=== PATIENT | male | born 1955 ===

== ENCOUNTER 2023-12-30 15:28 | Inpatient (IN) | payer MEDICARE, BC, SELFPAY ==
[2023-12-30] VITALS (47 sets, daily range): BP systolic 120–160; BP diastolic 6–93; BMI 34.7; BMI 32.9
[2023-12-30 13:39] LABS: Glucose - Point of Care 120 mg/dl (70-99)
--- NOTE | 2023-12-30 13:41 | ED.CVA ---
History of Present Illness
General
Chief Complaint: CVA/TIA Symptoms
Time Seen by Provider: 12/30/23 13:40
Onset of Stroke Symptoms
Onset of symptoms known: Yes
Date of onset of symptoms: 12/30/23
History of Present Illness
History of Present Illness:
68-year-old male with history of hypertension presents to the emergency department for evaluation of strokelike symptoms. Apparently he woke today stating generally weak, he was noted that he had left facial droop later in the afternoon by his son
and nonnormal was called. On arrival of EMS the patient had no stroke symptoms initial prehospital stroke scale was 0. While en route EMS notes a recurrence of left upper and lower extremity weakness as well as left facial droop, the symptoms have
again improved on arrival to the emergency department. Patient reports current symptoms of general weakness morning arms and legs. He denies headache, vision changes, chest pain, or shortness of breath
Review of Systems
Review of Systems
Allergies reviewed?: Yes
All Other Systems: ROS reviewed and negative except as documented in HPI and ROS
Phy Exam
Physical Exam
Physical Exam:
GEN: Well appearing, NAD, WDWN
HEENT: Oral mucosa moist, no scleral icterus, no nasal congestion
Cardiac: Regular rate
Lung: No respiratory distress, no tachypnea
MSK: No gross deformity or injuries
Skin: Good color, no pallor or jaundice, no rashes
Neuro: AO x3; CN II-XII grossly intact. BUE strength 5/5 in all lawrence, sensation intact and symmetric. BLE strength 5/5 in all lawrence, sensation intact and symmetric
Psych: Calm, cooperative
Course
Orders/Labs/Results
Orders:
Orders
12/30/23 13:39
Electrocardiogram (*1) Urgent
Reason for Study: Fatigue / Weakness
12/30/23 13:40
EKG- Treatment ONCE
12/30/23 13:41
CT Head W/o Iv Contrast Urgent
Comment:
Reason For Exam: tia
12/30/23 13:42
Complete Blood Count/With Diff Urgent
PTT Urgent
12/30/23 14:29
Comprehensive Metabolic Panel Urgent
12/30/23 14:47
Tenecteplase [Tnkase] 24 mg Syringe [Syringe Non-Pump] 0 ml IV NOW
Provider explained risk/benefits to patient &/or caregiver?: Yes
Blood pressure: 145/79
Abnormal Lab Results
12/30/23 12/30/23
13:38 13:42
WBC 12.6 H 10^3/uL
(4.8-10.8)
MPV 11.0 H fL
(7.4-10.4)
Abs Immat Gran (auto) 0.1 H 10^3/uL
(0-0.05)
Absolute Neuts (auto) 10.2 H 10^3/uL
(1.4-6.5)
Absolute Monos (auto) 0.9 H 10^3/uL
(0.1-0.6)
Neutrophils % 80.7 H %
(42.2-75.2)
Lymphocytes % 10.6 L %
(20.5-51.1)
POC Glucose 120 H mg/dl
(70-99)
12/30/23 13:42
Vital Signs
Initial and Last Documented VS:
Initial Vital Signs
Temp Pulse Resp Pulse Ox
98.2 F 75 16 98
12/30/23 13:35 12/30/23 13:35 12/30/23 13:35 12/30/23 13:35
Last Documented Vital Signs
Temp Pulse Resp BP Pulse Ox
98.2 F 70 21 145/79 96
12/30/23 13:35 12/30/23 14:15 12/30/23 13:45 12/30/23 14:00 12/30/23 14:15
MDM/Problems Addressed
MDM/Problems Addressed:
68-year-old male presents the emergency department for evaluation of waxing waning left-sided weakness. Patient's symptoms initially were resolved on arrival however he had 2 recurrences while in the emergency department. After careful discussion
with the patient and family as well as with neurology at the bedside the decision was made to give thrombolytics due to acute onset of symptoms and disabling symptoms. Blood pressure remained well-controlled the emergency department. TNK was
administered without complications. Will be admitted to the intensive care unit for further monitoring
*Critical Care Note
Total Time (30-74mins, 75-104mins- exclusive of procedures): 45 minutes
comment:
Critical care time: 45 minutes
Critical care time was exclusive of: Separately billable procedures, treating other patients, and teaching time
Critical care was necessary to treat or prevent imminent or life-threatening deterioration of the following conditions: Acute CVA
Critical care time spent personally by me on the following activities:
[x] Review of old charts
[x] Obtaining history from patient or surrogate
[x] Ordering and review of the laboratory studies
[x] Ordering and review of radiographic studies
[x] Ordering and performing treatments and interventions
[x] Patient patient's response to treatment
[x] Development of treatment plan with patient or surrogate
Update Note
Update Note:
1417: Patient without recurrence of reportedly hospital symptoms, initial arrival and need for serial current NIH of 4, 2 for facial droop, 1 for left upper and 1 for left lower extremity weakness. Speech is normal and he is fully alert and
oriented. No right-sided symptoms. Will reach out to neurology to discuss
1427: Discussed again with Dr. Guerrero with neurology, he will be in to see the patient at the bedside. Patient's symptoms have again resolved, current NIH of 0
1446: D/W Dr Guerrero at bedside, will administer TNK
1504: S/P TNK, neuro exam remains unchanged. Admitting team at the bedside
ED Attending Note
-
Portions of this chart may have been created with voice recognition software.� Occasional wrong word or��sound alike� substitutions may have occurred due to the inherent limitations of voice recognition software.
Discharge Plan
Departure
Patient Disposition: Admit
Date of Disposition: 12/30/23
Time of Disposition: 14:49
Admit to: ICU
Presentation/result/management discussed w/ accepting MD/DO: Hospitalist
Discharge Problem:
Acute CVA (cerebrovascular accident)
Referrals:
Leonardo Cardoza DO [Family Provider] -
Interventions
Interventions:
*Risk Screen - Suicide Last Done: 12/30/23 13:35
*General Assessment Last Done: 12/30/23 13:35
*Neglect/Abuse Screening Last Done: 12/30/23 13:35
*ED COVID-19 Vaccine History Last Done: 12/30/23 13:35
ED- Pulmonary Assessment Last Done: 12/30/23 14:02
ED- Neurological Assessment Last Done: 12/30/23 14:23
ED- Cardiac Assessment Last Done: 12/30/23 14:02
ED Swallowing Screen Last Done: 12/30/23 14:02
Discharge Date and Time
Print Language: COMORAN
[2023-12-30 14:03] LABS: % Basophils 0.4 % (0-2); % Eosinophils 0.7 % (0-6); % Immature Granulocytes 0.4 % (0-0.5); % Lymphocytes 10.6 % (20.5-51.1); % Monocytes 7.2 % (1.7-9.3); % Neutrophils 80.7 % (42.2-75.2); Absolute Basophils 0.1 10^3/uL (0-0.2); Absolute Eosinophils 0.1 10^3/uL (0-0.7); Absolute Immature Granulocytes 0.1 10^3/uL (0-0.05); Absolute Lymphocytes 1.3 10^3/uL (1.2-3.4); Absolute Monocytes 0.9 10^3/uL (0.1-0.6); Absolute Neutrophils 10.2 10^3/uL (1.4-6.5); Hematocrit 45.8 % (39.0-52.0); Hemoglobin 15.2 g/dL (13.0-18.0); Mean Corp Hgb Conc. 33.2 g/dL (33.0-37.0); Mean Corpuscular Hgb 29.8 pg (27.0-31.0); Mean Corpuscular Volume 89.8 fL (80.0-94.0); Nucleated Red Blood Cells % 0 % (-); Platelet Count 282 10^3/uL (130-400); Red Cell Dist. Width 13.2 % (11.5-14.5); White Blood Cell Count 12.6 10^3/uL (4.8-10.8)
[2023-12-30 14:14] LABS: APTT 29.5 Sec (23.4-35.0)
[2023-12-30] MEDS: TNKASE 4.8 MG IV (14:58)
--- NOTE | 2023-12-30 15:07 | CON.NEURO4 ---
Consultation - Neurology 4
-
CONSULTING PHYSICIAN: Andrew Guerrero MD (Neurology)
REFERRING PHYSICIAN: ED
DICTATED BY: Andrew Guerrero MD
DATE/TIME OF REQUEST: 12/30/2023
DATE/TIME OF CONSULTATION: 12/30/2023 1500
Reason for Consultation: Weakness(Left)
History of Present Illness:
This is a 68 year old right handed male who has presented to the hospital with (chief complaint) of left sided weakness. He gives a history of uncontrolled hypertension benign tremors and tinnitus(Meniere). He had been his usual state of health
when he woke up later this morning. He felt more tired than usual, foggy and yawning. his son noted left facial asymmetry. He was seen by EMS initial evaluation he had minimal deficits. Subsequently his weakness recurred intermittently. In the
ER he had no weakness initially after imaging studies were completed he had recurrent weakness on the left side that persisted
Blood pressure was mildly elevated 145/85.
On my examination patient had right gaze preference, was hemiparetic(L) with left facial asymmetry and photophobia
Informed nursing and the ED to administer TNK stat
Past Medical History: HTN, (Meniere disease?) Vestibular migraine
Surgical History: None
Family History: NC
Social History: lives at home with his wide
Allergies: Aspirin causes tinnitus
Home Medications: Losartan, HCTZ, Propranolol ER
Review of Symptoms:
Patient denies any fever, headache, chest pain, shortness of breath, GI or symptoms.
�Per the HPI.�All systems are reviewed negative except above.
�-
Vital Signs:
The patient has a Temp 36.8 C Pulse 70 Resp 21 BP 145/79 Pulse Ox 96
Physical Exam:
The patient is afebrile, heart sounds S1 and S2 are regular , and chest is clear to auscultation bilaterally.
- If not clear, describe.
NIH Stroke Scale (if applicable):
I performed the NIH stroke scale on the patient on 1445 . The patient scored ( 9 ) points on the NIH stroke scale assessment, which were assigned as follows:
Neurologic Examination:
The patient is awake, confused and oriented x 3. He is able to follow commands and answer questions appropriately. Speech is fluent There is no aphasia or dysarthria.
On cranial nerve assessment, pupils are 3 mm bilateral, round and reactive to light and accommodation. Visual lawrence are full. Extraocular movements are intact. Facial sensations are intact and bilaterally symmetrical, there is no facial asymmetry.
Hearing is intact bilaterally to normal conversation volume. Tongue palate and uvula are midline. Sternocleidomastoid strengths are full bilaterally.
Motor strengths are 5/5 bilateral upper and lower extremities on medical research Resighini scale. There is no drift or involuntary movement noted.
Deep tendon reflexes are 2+ bilateral upper and lower extremities and Babinski is absent bilaterally.
Sensations of pain, touch, temperature and vibration are intact and bilaterally symmetrical. There was no extinction noted on double simultaneous stimulation. Coordination is intact by finger to nose bilaterally. Rombergs and Gait NT
Lab Results: See addendum
Neuro Imaging: CT head: Minimal atrophy. Minimal white matter changes. Normal ventricles
Impression:
Mr. MATT DAVENPORT is a 68 year old M who has presented to the hospital with (symptoms/chief complaint) of left sided weakness
Differentials for the patient's presentation include:
1. Acute Right MCA infarction
2. Complicated Migraine
Patient has the following risk factors for their symptoms: HTN
IV Tenecteplase/IAT candidacy: TNK infused
Recommendations:
1. IV TNK 0.25mg/kg
2. Avoid antiplatelet agents for [address] head
4. MRI/MRA of the head without
5. Ultrasound of the carotids
6. Echocardiogram
7. High intensity statin
8. PT/OT
9. Speech therapy
10. N.p.o.
11. Permissive HTN
12. No venous or arterial punctures for 24 hours
Discussed patient care with: ED hospitalist and family
Advised Nursing to start second IV line prior to TNK. Nursing failed to follow directions and was strongly advised not to start IV after TNK infusion @ 1500..
Allergies
-
Allergies
Allergy/AdvReac Type Severity Reaction Status Date / Time
No Known Allergies Allergy Unverified 12/30/23 13:46
Vital Signs and Labs
-
Vital Signs and Labs:
Vital Signs
Temp Pulse Resp BP Pulse Ox
36.8 C 70 21 145/79 96
12/30/23 13:35 12/30/23 14:15 12/30/23 13:45 12/30/23 14:00 12/30/23 14:15
Lab Results
12/30/23 13:42
APTT 29.5 Sec (23.4-35.0) 12/30/23 13:42
Sodium Cancelled 12/30/23 13:42
Potassium Cancelled 12/30/23 13:42
BUN Cancelled 12/30/23 13:42
Glucose Cancelled 12/30/23 13:42
Calcium Cancelled 12/30/23 13:42
[2023-12-30 15:10] LABS: ALT (SGPT) 17 U/L (0-50); AST (SGOT) 25 U/L (17-59); Albumin 3.9 g/dl (3.5-5.0); Alkaline Phosphatase 72 U/L (38-126); Blood Urea Nitrogen 23 mg/dl (9-20); Carbon Dioxide 22 mmol/L (22-30); Chloride 104 mmol/L (98-107); Estimated Creatinine Clearance 108 ml/min; Glucose 123 mg/dl (70-99); Potassium 4.3 mmol/L (3.5-5.1); Sodium 138 mmol/L (135-145); Total Bilirubin 0.6 mg/dl (0.2-1.3); Total Protein 6.2 g/dl (6.3-8.2); eGFR > 60.00
--- NOTE | 2023-12-30 15:30 | CON.INTV ---
Consultation
Consultation Request
Date/Time Consultation Requested: 12/30/2023 - 1506
Date/Time Consultation Performed: 12/30/2023 - 1524
Requesting Provider: ABDIRAHMAN Andrade
Performing Provider: Evin Montanez MD
Reason for Consultation: suspected CVA s/p TNK
Medical History
-
Chief Complaint: Left-sided weakness/facial droop
History of Present Illness:
68-year-old male non-smoker with a past medical history of hyperlipidemia, hypertension, history of ocular migraines, and vertigo who presents with left-sided weakness/left-sided facial droop. Symptoms began at approximately 12 PM today [employer]CH[employer]ING [employer] and
then symptoms resolved once he arrived here in the hospital. The patient endorsed generalized weakness with arms and legs. He denied headache, vision changes, chest pain or shortness of breath. NIH stroke score was 4 in the ER. Neurology was
contacted (Dr. Guerrero) -CT head obtained which showed no evidence of acute intracranial abnormality. Initial vitals showed he was afebrile to 98.2 �F, pulse rate 75, breathing at 16 breaths/min, BP 155/76 and saturating 98% on room air. Labs showed
mild leukocytosis to 12.6, Hb 15.2, platelets 282, PTT 29.5, and glucose 123. Decision made to administer tenecteplase, which was given at 1458. Patient is now being admitted to the ICU for q1hr neurochecks and close monitoring. Car Rental Agency Manager
consulted for additional management/recommendations.
When I saw the pt he was in NAD. , Concepción, at bedside, and all questions were answered, Pt. currently on room air breathing comfortably, SpO2 97%, HR 74 and BP 145/71. He says that he feels like 'he is on drugs.' He says his left sided
weakness symptoms began this AM at around 11-1130. He currenyl feels better but still with left arm and left leg weakness. He denies MOODY, chest pain, abd pain, N/V/f/c.
PMHx: Vertigo, hyperlipidemia, chronic left hip pain, history of ocular migraine, hypertension, elevated PSA, history of hemorrhoids
PSHx: Tonsillectomy
Past Medical History
Past Medical History: Other (Above as per HPI)
Past Surgical History: Other (Above as per HPI)
Social History
Tobacco: Non-smoker
Alcohol: None
Drug: None
Personal:
Living: With Family
Family History
Family History: CAD (Father: Hx of DC (he was a smoker and drinker))
Allergies / Home Medications
Allergies
Allergy/AdvReac Type Severity Reaction Status Date / Time
No Known Allergies Allergy Unverified 12/30/23 13:46
Review of Systems
-
History Source: Patient
All other systems: Negative unless noted
Vitals / Labs / Diagnostic Testing
Vital Signs
Temp Pulse Resp BP Pulse Ox
98.2 F 73 16 120/62 96
12/30/23 13:35 12/30/23 15:14 12/30/23 15:14 12/30/23 15:14 12/30/23 14:15
Lab Data
12/30/23 13:42
12/30/23 14:29
Laboratory Results
12/30/23
13:42
APTT 29.5
Diagnostic Testing:
Physical Exam
-
HEENT: Normocephalic and Anicteric
Cardiovascular: S1/S2
Respiratory: Wheeze (negative), Rales (negative), Rhonchi (negative) and Non-Labored Respirations
GI: Soft, Non Distended, Non Tender and Normal Bowel Sounds
Neurology: Awake, Alert, Other (Left hand mill machinist strength 3/5, right hand mill machinist strength 5/5; left foot dorsi-/plantar-flexion: 4/5, right foot dorsi-/plantar-flexion: 5/5; left flattening of nasolabial fold with smiling) and Other (sensation to light
touch intact in arms, legs and face; able to resist me opening eye lids, normal shoulder shrug, normal H test with occasional drifting of eyes to the right; able to protrude tongue and deviate to left and right)
Skin: Warm and Dry
General: Respiratory Distress (negative), Comfortable, Chills (negative) and Sweats (negative)
Assessment
-
Assessment: 68-year-old male non-smoker with a past medical history of hyperlipidemia, hypertension, history of ocular migraines, and vertigo who presents with left-sided weakness/left-sided facial droop. Symptoms began at approximately 12 PM
today [employer] and then symptoms resolved once he arrived here in the hospital. The patient endorsed generalized weakness with arms and legs. He denied headache, vision changes, chest pain or shortness of breath. NIH stroke score was 4 in the ER.
Neurology was contacted (Dr. Guerrero) -CT head obtained which showed no evidence of acute intracranial abnormality. Initial vitals showed he was afebrile to 98.2 �F, pulse rate 75, breathing at 16 breaths/min, BP 155/76 and saturating 98% on room air.
Labs showed mild leukocytosis to 12.6, Hb 15.2, platelets 282, PTT 29.5, and glucose 123. Decision made to administer tenecteplase, which was given at 1458. Patient is now being admitted to the ICU for q1hr neurochecks and close monitoring.
Car Rental Agency Manager consulted for additional management/recommendations.
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
Impression:
#Left-sided weakness/facial droop suspicious for R-sided ischemic CVA s/p TNK (administered at 14:58 on 12/30/2023)
#Leukocytosis - likely reactive
#History of ocular migraine
#Hypertension
#History of hemorrhoids
#History of vertigo
Plan:
- Continue q1hr neurochecks per protocol with NIHSS q shift
- Stat CT head for any change in neurochecks or NIHSS with notification to Neurologist and Car Rental Agency Manager
- Hold ant-coagulants/anti-platelets until >24 hrs s/p TNK
- Repeat CT head ~[address] head earlier today
- Strict BP with goal <180/105mmHg (with MAP>65) at least until 24 hrs s/p TNK
- Bedrest with HOB flat as tolerated to help perfuse brain parenchyma
- RN bedside swallowing eval to assess if pt can take PO meds
- CROZER eval prior to starting PO diet
- Check TTE with bubble study
- Check TSH with reflex to free T4, UA and vitamin B12, folate
- Check lipid panel and A1C
- Goal LDL<70
- PT/OT
- Eventual MRI (likely this upcoming Monday)
- Trend WBC; monitor for fever
- WBC likely reactive --> hold off on ABx for now
- If pt spikes a fever then consider starting empiric Abx at that time
- Maintain SpO2 >94%
- Replete electrolytes with K>4, Mg>2
- Maintain euglycemia with goal BG 140-180
- prn nebulized bronchodilators - pt not currently bronchospastic
- Incentive spirometer encouraged
- DVT ppx: SCDs for now; can likely start LMWH tomorrow night assuming repeat CT head tomorrow shows no acute changes or ICH
Critical care statement: A total of 42 minutes of critical care time was provided for this patient today. This includes management of unstable vital signs, evaluation of the patient at bedside, reviewing the patient's pertinent medical records
including radiographs, microbiology, laboratory evaluations, and discussion with primary team, consultants, pharmacy, nutrition, physical therapy, case management, charge nurse, critical care nursing, and respiratory therapy.
Data:
CT Head 12/30/2023: No evidence of acute intracranial abnormality.
--- NOTE | 2023-12-30 15:42 | HPS.HSE ---
Family Physician
-
Family Physician: Leonardo Cardoza
Chief Complaint
-
Left sided weakness
History of Present Illness
Patient is 68 yo male with a hx of hypertension, essential tremor and ocular migraines who presents with left-sided weakness, facial droop and slurred speech. History obtained through combination of patient and patient's family member in the room.
He reports that his symptoms began 'around lunchtime' when he noticed he was yawning a lot and then felt funny as if he 'was on drugs.' He then sat on the floor and could not get up due to weakness, worse in the LLE than LUE. He says he called out
to his son, who reportedly found the patient down at 11:22am per the patient's at bedside. It seems symptoms were waxing and waning until EMS was called and was brought to the emergency department around 1:30PM. Patient was evaluated by
neurology as a stroke alert. Patient received TNK prior to my evaluation. Family at bedside have noted some improvement in his symtpoms.
Medical History
Past Medical History
Past Medical History: Reports Other
Additional Past Medical History:
Essential Hypertension
Essential Tremor
Ocular Migraine
Meniere's Disease (Questionable)
Past Surgical History: Reports Other
Additional Past Surgical History:
Tonsillectomy
Social History
Tobacco: Non-smoker
Alcohol: None
Personal:
Living: With Family
Family History
Family History: Not pertinent
Allergies / Home Medications
Allergies reflects when Allergies were last updated in [facility].
Home Medications with original date entered in [facility]
Allergy/Medication List:
Allergies
Allergy/AdvReac Type Severity Reaction Status Date / Time
No Known Allergies Allergy Unverified 12/30/23 13:46
Home Medications
hydrochlorothiazide 25 mg tablet 25 mg PO DAILY 12/30/23
losartan 50 mg tablet 50 mg PO DAILY 12/30/23
propranolol 80 mg capsule,extended release 24 hr 80 mg PO DAILY 12/30/23
Review of Systems
-
A 12 point ROS was completed and negative except as noted: Yes
Constitutional: Denies Fever or Chills
Respiratory: Denies Cough or Trouble Breathing
Cardiac: Denies Chest Pain or Palpitations
Neurological: Reports See HPI
Physical Exam
Vital Signs
Vital Signs
Temp Pulse Resp BP Pulse Ox
98.2 F 70 18 142/70 96
12/30/23 13:35 12/30/23 15:29 12/30/23 15:29 12/30/23 15:29 12/30/23 14:15
Physical Exam
General: Comfortable and Conversant
HEENT: Anicteric and Moist mucous membranes
Respiratory: Clear and Non Labored Respirations
Cardiac: S1/S2 and Regular Rhythm
GI: Soft and Non Tender
Rectal: Deferred by Provider
Musculoskeletal: No Clubbing, No Cyanosis and No Edema
Skin: Warm and Dry
Neuro: Awake, Alert, AO x 3, Facial Droop (Slight on Left), Tremors (chronic per patient) and Other (4/5 Strength LUE; 3/5 Strength LLE)
Laboratory Results
-
12/30/23 13:42
12/30/23 14:29
Laboratory Results
APTT 29.5 Sec (23.4-35.0) 12/30/23 13:42
Total Bilirubin 0.6 mg/dl (0.2-1.3) 12/30/23 14:29
AST 25 U/L (17-59) 12/30/23 14:29
ALT 17 U/L (0-50) 12/30/23 14:29
Alkaline Phosphatase 72 U/L (38-126) 12/30/23 14:29
Data Reviewed
-
CT Scan: Report Reviewed by me
Lab Data: Labs Reviewed by me
Impression/Plan
-
Left Sided Weakness and Facial Droop concern for Acute Stroke
-Patient received TNK in ED
-Consult Neurology
-Admit to ICU for close monitoring
-Check Brain MRI with Head/Neck MRA tomorrow
Essential Hypertension
-Continue losartan and propranolol
-Hold HCTZ
Essential Tremor
-Continue Propranolol
DVT proph: SCDs
Code Status: Full Code
--- NOTE | 2023-12-30 16:42 | W.PN.UPDATE ---
Update Note
Progress Note Update
This is an addendum to the H&P written by Lizbeth Leary on 12/30/2023. Patient seen and examined independently with PA.
68-year-old male past medical history of ocular migraine, essential tremor, hypertension presenting with acute onset left-sided weakness, facial droop and slurred speech since lunchtime. NIH score of 9 which was concerning for acute right MCA
infarction.
Patient received TNK with noticeable improvement in weakness.
Neurochecks per protocol. Permissive hypertension up to 180/105. Hold antihypertensives. Check speech and swallow. A1c and lipid panel. Check MRI/MRA head and neck. Neurology following.
--- NOTE | 2023-12-30 17:28 | PTCARENOTE ---
Rec'd pt at approx 1610. Pt AAOx3, NIHSS-5. +left facial droop noticeable at rest. Mild weakness to LUE/LLE, slight drift in left arm, no drift noted in left leg. Pt states having mild sensation loss to face and upper body on left upon testing, no
loss to left leg. +LUE ataxia. Bedside swallow eval done, pt states that his swallowing 'doesn't feel normal'. No coughing noted, pt remains NPO, to have speech eval tomorrow. Monitor SR. Lungs CTA, pox 94% RA. +BS, abd soft/nt. at bedside,
updated on plan of care.
--- NOTE | 2023-12-30 20:00 | PTCARENOTE ---
Received pt resting in bed, AAOx3. NIH handoff completed with gabino RN. NIH = 3. L droop present, LUE and LLE 4/5 strength. Decreased L sided sensation and ataxia resolved on exam. Pt. without complaints. NSR on tele. HR 70s. BP 150s/80s. +
pulses. Afebrile. On RA, spo2 96%. Lungs CTA. + bowel sounds. Tolerated sips of h20. Voided 400ml krystal urine. R FA #20 patent and capped. Neuro checks ongoing per protocol. Call schmid in reach.
Updated neuro Dr Guerrero.
[2023-12-31] VITALS (28 sets, daily range): BP systolic 101–150; BP diastolic 54–86; PULSE 81; O2SAT 96; BMI 33.2
--- NOTE | 2023-12-31 | PTCARENOTE ---
No changes in assessment. Pt resting comfortably between neuro checks.
[2023-12-31 03:59] LABS: Hematocrit 41.3 % (39.0-52.0); Hemoglobin 14.4 g/dL (13.0-18.0); Mean Corp Hgb Conc. 34.9 g/dL (33.0-37.0); Mean Corpuscular Hgb 29.7 pg (27.0-31.0); Mean Corpuscular Volume 85.2 fL (80.0-94.0); Platelet Count 280 10^3/uL (130-400); Red Blood Cell Count 4.85 10^6/uL (4.70-6.10); Red Cell Dist. Width 13.3 % (11.5-14.5); White Blood Cell Count 10.6 10^3/uL (4.8-10.8)
[2023-12-31 04:09] LABS: INR 1.08; PT 13.8 Sec (11.4-14.6)
[2023-12-31 04:10] LABS: APTT 27.9 Sec (23.4-35.0)
--- NOTE | 2023-12-31 04:18 | PTCARENOTE ---
No changes in assessment. Q1h neuro checks ongoing. Pt. without complaints. Reports feeling better. AM labs drawn
[2023-12-31 04:24] LABS: Blood Urea Nitrogen 20 mg/dl (9-20); Calcium 10.1 mg/dl (8.4-10.2); Carbon Dioxide 21 mmol/L (22-30); Chloride 103 mmol/L (98-107); Estimated Creatinine Clearance 105 ml/min; Glucose 108 mg/dl (70-99); HDL Cholesterol 44 mg/dl; LDL Cholesterol, Calculated 193 mg/dl; Magnesium 2.2 mg/dl (1.6-2.3); Sodium 140 mmol/L (135-145); Total Cholesterol 262 mg/dl (50-199); Triglyceride 129 mg/dl (10-149); Very Low Density Lipoprotein 25 mg/dl (0-30); eGFR > 60.00
[2023-12-31 05:30] LABS: Folate > 20.0 ng/ml (2.76-20); Vitamin B12 963 pg/ml (239-931)
--- NOTE | 2023-12-31 08:21 | W.PN.HOSP.TC ---
Today's Communication/Plan
-
Brain MRI
Echocardiogram
Resume diet after speech consult
IV fluid bolus
Lipitor
Assessment / Plan
Assessment / Plan
Gen-AAOx3, NAD
HEENT-NC, AT, anicteric, clear oral mm
Neck-supple
CV-reg, no M, +S1/S2
Lungs-clear B/L
Abd-soft, NT, ND
Ext-no edema
Musculoskeletal-no cyanosis, clubbing
Skin-warm and dry
Neuro-grossly non-focal
Psych-calm, cooperative
Acute right MCA stroke -presentation with left facial droop, left hemiparesis. Await MRI. Admission CT head no evidence of acute disease. Thrombolysis administered in the emergency room, 14:58 on 12/29, improvement in neurologic status noted.
Monitor in ICU. Neurology consulted. Left-sided weakness improving according to patient. Await speech therapy, PT/OT. Resume diet when able. Hold antihypertensives, currently relatively hypotensive. Will give IV fluid bolus.
Start atorvastatin. LDL noted to be 193. Total cholesterol 262.
Echocardiogram. Admission EKG with normal sinus rhythm.
Hyperglycemia -rule out diabetes, check hemoglobin A1c.
Essential hypertension -Home medications on hold for hypotension, acute stroke.
essential tremor
M�ni�re's disease
Obesity due to excess calories
Full code
updated on the phone.
Anticipated Discharge: 24 - 48 hours
Subjective/Interval History
-
Date of Service: December 31, 2023
Patient seen and examined. Feels better. No complaints.
Objective Data
-
Labs:
Laboratory Results
12/31/23
03:46
WBC 10.6
Hgb 14.4
Hct 41.3
Plt Count 280
PT 13.8
INR 1.08
APTT 27.9
Sodium 140
Potassium 4.0
Chloride 103
Carbon Dioxide 21 L
BUN 20
Creatinine 0.7
Glucose 108 H
Calcium 10.1
Vital Signs:
Vital Signs
Temp Pulse Resp BP Pulse Ox
98.3 F 73 20 135/67 95
12/31/23 07:00 12/31/23 08:00 12/31/23 08:00 12/31/23 08:00 12/31/23 08:00
I&O
12/30/23 12/31/23 01/01/24
06:59 06:59 06:59
Output Total 600 / 600
Balance -600 / -600
Review of Systems
-
History Source: Patient
All other systems: Reviewed and negative
--- NOTE | 2023-12-31 08:38 | PTCARENOTE ---
Rec'd pt at 0700. Pt AAOx3, follows commands, HERNANDEZ with mild LUE weakness. NIHSS-2, slight left facial droop, mild LUE drift. Pt with anxiety about disease process and plan of care, requires frequent reassurance and detailed explanation. Monitor SR.
Lungs CTA, pox 97% RA. +BS, abd soft/nt. Pt assisted to BSC to void with standby assistance.
[2023-12-31] MEDS: NSS 500 IV (08:55)
--- NOTE | 2023-12-31 09:02 | W.PN.INTV ---
Today's Communication / Plan
Recommendations
Up OOB as tolerated
PT/OT
Neurochecks per protocol
MRI brain today - if no large ischemic CVA or ICH, will start monoplatelet therapy with Plavix and DVT chemical prophylaxis
High intensity statin
Diet as per SEAMLESS TUBE DRAWER
Patient stable for transfer out of ICU to telemetry (I will first follow-up MRI brain before transfer orders are placed) - no additional recommendations at this time. External Grinder Tool/Pulmonary service will now sign off. Please reconsult if there are
any additional questions/concerns, or if patient's respiratory status deteriorates.
Assessment
-
Assessment: 68-year-old male non-smoker with a past medical history of hyperlipidemia, hypertension, history of ocular migraines, and vertigo who presents with left-sided weakness/left-sided facial droop. Symptoms began at approximately 12 PM
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 The patient endorsed generalized weakness with arms and legs. He denied headache, vision changes, chest pain or shortness of breath. NIH stroke score was 4 in the ER.
Neurology was contacted (Dr. Guerrero) -CT head obtained which showed no evidence of acute intracranial abnormality. Initial vitals showed he was afebrile to 98.2 �F, pulse rate 75, breathing at 16 breaths/min, BP 155/76 and saturating 98% on room air.
Labs showed mild leukocytosis to 12.6, Hb 15.2, platelets 282, PTT 29.5, and glucose 123. Decision made to administer tenecteplase, which was given at 1458. Patient is now being admitted to the ICU for q1hr neurochecks and close monitoring.
External Grinder Tool consulted for additional management/recommendations.
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
Impression:
#Left-sided weakness/facial droop suspicious for R-sided ischemic CVA s/p TNK (administered at 14:58 on 12/30/2023)
#Leukocytosis - likely reactive - now resolved
#Hyperlipidemia
#Prediabetes (A1c: 5.7)
#History of ocular migraine
#Hypertension
#History of hemorrhoids
#History of vertigo
Plan:
- Continue neurochecks, and can redeuce to q4hr today per protocol with NIHSS q shift
- Stat CT head for any change in neurochecks or NIHSS with notification to Neurologist and External Grinder Tool
- Hold ant-coagulants/anti-platelets until >24 hrs s/p TNK
- MRI brain pending for today
- If no signs of intracerebral hemorrhage, will start monoplatelet therapy with Plavix (per neurology)
- Strict BP with goal <180/105mmHg (with MAP>65) at least until 24 hrs s/p TNK; then goal <130/80mmHg
- Bedrest with HOB flat as tolerated to help perfuse brain parenchyma --> ok to get up OOB today
- RN bedside swallowing eval to assess if pt can take PO meds
- SEAMLESS TUBE DRAWER eval saw patient today and recommended regular solids with thin liquids and aspiration precautions
- Check TTE with bubble study - pending
- TSH is WNL; check UA; vitamin B12 + folate WNL
- Start high intensity statin with goal LDL<70
- PT/OT
- Trend WBC; monitor for fever
- WBC likely reactive --> hold off on ABx for now
- If pt spikes a fever then consider starting empiric Abx at that time
- Maintain SpO2 >94%
- Replete electrolytes with K>4, Mg>2
- Maintain euglycemia with goal BG 140-180
- prn nebulized bronchodilators - pt not currently bronchospastic
- Incentive spirometer encouraged
- DVT ppx: SCDs for now; can start LMWH tonight assuming MRI brain shows no large ischemic CVA or ICH
Patient stable for transfer out of ICU to telemetry (I will first follow-up MRI brain before transfer orders are placed). This was also confirmed with neurology. No additional recommendations at this time. External Grinder Tool/Pulmonary service will now
sign off. Thank you for allowing us to be involved in the care of this patient. Please reconsult if there are any additional questions/concerns, or if patient's respiratory status deteriorates.
Total time spent today was 75 minutes for this encounter. Time includes reviewing laboratory test/imaging results, reviewing pertinent medical records, obtaining and reviewing medical history, performing an appropriate exam, ordering medications,
tests and procedures. Time also includes documentation of this encounter, coordinating patient care and communicating with other healthcare professionals. Total time does not include separately billed tests performed on this date of service.
Data:
CT Head 12/30/2023: No evidence of acute intracranial abnormality.
CXR 12/30/2023: No evidence of active cardiopulmonary disease.
Subjective Dataa
Subjective Data
Date of Service:
Date of Service: December 31, 2023
Chief Complaint: External Grinder Tool Follow Up
Subjective:
Patient seen and evaluated today at bedside. He feels much better today, saying that his speech has improved and he no longer feels like he 'is on drugs.' Patient's family friend/family practitioners at bedside. All questions were answered. The
patient denies numbness/tingling, and says that his left arm/leg weakness is also almost back to normal. He does have an essential tremor which is chronic and that is at baseline. He denies shortness of breath, chest pain, MOODY, abdominal pain,
nausea, fevers or chills. BP 109/58, heart rate 74 and saturating 98% on room air.
Review of Systems
General: Other (Negative unless mentioned above)
Objective Data
Data Reviewed
Vital Signs / I&O / Oxygen:
Vital Signs
Temp Pulse Resp BP Pulse Ox
98.3 F 68 17 129/60 96
12/31/23 07:00 12/31/23 09:00 12/31/23 09:00 12/31/23 09:00 12/31/23 09:00
Intake and Output
12/30/23 12/31/23 01/01/24
06:59 06:59 06:59
Intake Total 620 / 620
Output Total 600 / 600 300 / 300
Balance -600 / -600 320 / 320
SaO2 96
Physical Exam
General: Respiratory Distress (negative), Comfortable, Chills (negative) and Sweats (negative)
HEENT: Normocephalic and Anicteric
Cardiovascular: S1-S2 and Peripheral Edema (negative)
Respiratory: Wheeze (negative), Crackles (negative), Rhonchi (negative) and Non-Labored Respirations
GI: Soft, Distended (Abdominal obesity), Non Tender and Normal Bowel Sounds
Neurology: AO x 3, Tremors (essential tremor), Other (Left hand rip tailer strength 4/5, right hand rip tailer strength 5/5; left foot dorsi-/plantar-flexion: 5/5, right foot dorsi-/plantar-flexion: 5/5; normal smile with no flattening of naso-labial folds
seen) and Other (Sensation to light touch intact in arms, legs and face; able to resist me opening eye lids, normal shoulder shrug, normal H test; able to protrude tongue and deviate to left and right)
Skin: Warm, Dry, Jaundice (negative) and Rash (negative)
Labs/Micro/Reports
Lab Data
12/31/23 03:46
12/31/23 03:46
Laboratory Results
12/30/23 12/31/23
13:42 03:46
PT 13.8
INR 1.08
APTT 29.5 27.9
[2023-12-31 10:26] LABS: Glycohemoglobin (HgbA1c) 5.7 % (4.0-5.6)
--- NOTE | 2023-12-31 10:51 | PTOTSP ---
Speech Therapy
Presentation: Patient was oriented and followed commands. Patient has essential tremors which were noted when cued to protrude tongue during oral examination. Patient's speech and language appeared to be WNL during conversation and object naming.
Patient stated his speech was 'slurred' at admission and has since returned to baseline.
Swallowing Function: Patient was observed with his meal tray (regular consistency solids and thin liquids) in which patient appeared to tolerate as he did not exhibit any overt clinical s/sx of aspiration or difficulty with mastication. Patient
denied any dysphagia complaints. Patient stated that his essential tremors can be a barrier to holding smaller objects when self feeding which was not observed during assessment.
Recommendations:
1) Continuation of regular consistency solids and thin liquids
2) Aspiration precautions
3) Consider OT consult for complaints
Plan: SECURITY TEST ENGINEER will sign off at this time as patient is performing at his baseline function.
--- NOTE | 2023-12-31 12:30 | PTCARENOTE ---
Neuro symptoms have resolved. Pt for MRI this afternoon.
--- NOTE | 2023-12-31 12:56 | W.PN.NEURO.1 ---
Today's Communication / Plan
-
68 yr. old male with h/o HTN who suffered a Right CVA (MCA) with left hemiparesis that resolved with TNK infusion.
He may be transferred to the floor.
MRI/MRA head
Neuro Assessment/Plan
Assessment
68 yr. old male with h/o vestibular migraine who experienced sudden left sided weakness on Dec 29 secondary to right frontal ischemia that resolved with TNK infusion
Plan
Permissive HTN-Restart Propranolol
Plavix after 1600
MRI/MRA head
US carotids
Statin
PT/OT
Resume PO intake
Subjective/Objective
Subjective Data
Date of Service: December 31, 2023
Pat is doing well. No complaints. Weakness has resolved. Strength is at baseline. No headaches. Minimal dizziness.
Objective Data
Vital Signs
Temp Pulse Resp BP Pulse Ox
36.7 C 74 22 118/55 97
12/31/23 11:00 12/31/23 12:15 12/31/23 12:15 12/31/23 12:00 12/31/23 12:15
Lab Results
12/31/23 03:46
12/31/23 03:46
PT 13.8 Sec (11.4-14.6) 12/31/23 03:46
INR 1.08 12/31/23 03:46
APTT 27.9 Sec (23.4-35.0) 12/31/23 03:46
Sodium 140 mmol/L (135-145) 12/31/23 03:46
Potassium 4.0 mmol/L (3.5-5.1) 12/31/23 03:46
BUN 20 mg/dl (9-20) 12/31/23 03:46
Glucose 108 mg/dl (70-99) H 12/31/23 03:46
Calcium 10.1 mg/dl (8.4-10.2) 12/31/23 03:46
LDL Cholesterol, Calc 193 mg/dl 12/31/23 03:46
Vitamin B12 963 pg/ml (239-931) H 12/31/23 03:46
Patient Allergies
No Known Allergies Allergy (Unverified 12/30/23 13:46)
Review of Systems
-
History Source: Patient
All other systems: Reviewed and negative
Constitutional: No Symptoms
EENT: No Symptoms Reported
Respiratory: No Symptoms
Cardiac: No Symptoms
Abdomen/GI: No Symptoms
Genitourinary: No Symptoms
Musculoskeletal: No Symptoms
Skin: No Symptoms
Neuro: No Symptoms
Endocrine: No Symptoms
Hematologic / Lymphatic: No Symptoms
Allergy / Immunology: No Symptoms
Physical Exam
-
General: Well Developed, Well Nourished, No Apparent Distress and Comfortable
Eyes: Able to visualize OU, Unremarkable and Round OU
HEENT: Normocephalic, Atraumatic, Anicteric and Moist Mucous Membranes
Neck: No Bruits Bilaterally and Full Range of Motion
Respiratory: Clear to Auscultation
Cardiac: Regular Rhythm
GI: Normal Bowel Sounds
Skin: Unremarkable
Extremities: No Clubbing, No Cyanosis and No Edema
Psych: Unremarkable and Intact Judgement/Insight
Extended Neurological Exam
Mood & Affect: Mood Unremarkable and Affect Unremarkable
Attention Span & Concentration: Awake, Alert, Interactive and No Difficulty with 2 Step Request
Memory: Unremarkable and Able to Recall
Tremor: With Action
Involuntary Movement: None
Speech: Quality Unremarkable, Quantity Unremarkable and Rate of Production Unremarkable
Cranial Nerve II: Left Eye: Pupillary Reactivity Unremarkable, Pupillary Size Unremarkable and Visual Villalpando Grossly Intact
Cranial Nerve II: Right Eye: Pupillary Reactivity Unremarkable, Pupillary Size Unremarkable and Visual Villalpando Grossly Intact
Cranial Nerves III, IV, : Extraocular Movement: Extraocular Movement Full in all Directions
Cranial Nerve V: Facial Sensation: Intact to Light Touch
Cranial Nerve VII: Facial Symmetry: Normal Facial Symmetry
Cranial Nerve VIII: Hearing: Unremarkable Hearing to Normal Conversational Volume
Cranial Nerves IX, X: Palate Movement: Palate Elevation Symmetric
Cranial Nerve XI: Shoulder Shrug: Unremarkable
Cranial Nerve XII: Tongue Protusion: Midline
Muscle Strength, Overall: Full Throughout
Muscle Bulk & Tone: Bulk Unremarkable and Tone Unremarkable
Pronator Drift: No Drift in Upper Extremities and No Drift in Lower Extremities
Deep Tendon Reflexes: Unremarkable Throughout
Cold Sensation: Unremarkable
Vibration Sensation: Unremarkable
Touch Sensation: Unremarkable
Coordination: Hhyiie-rewy-rgyfwg Testing Unremarkable and Reaches for Objects without Difficulty
Babinski Sign: Absent Bilaterally
--- NOTE | 2023-12-31 14:07 | CM ---
Patient seen at bedside with patient sister and brother in law in room. Patient requested CM return when he was alone to complete assessment. CM will continue to follow for discharge planning needs.
--- NOTE | 2023-12-31 14:47 | PTCARENOTE ---
~1350 pt to MRI, ~1500 pt back to ICU room. at bedside, pt and updated. Symptoms remained resolved. No changes in assessment.
--- NOTE | 2023-12-31 16:28 | W.PN.UPDATE ---
Update Note
Progress Note Update
MRI brain + MRA head/neck completed, showing nonhemorrhagic acute/subacute infarct within the right periventricular/cohen radiata region and posterior limb of the right internal capsule. Report discussed with the patient as well as in detail.
Results discussed with neurology, Dr. Guerrero, and Plavix to be started. Patient still stable for transfer to telemetry. Awaiting TTE with bubble study.
Likely can go home tomorrow assuming no restrictions from PT/OT and no additional recommendations from neurology.
[2023-12-31] MEDS: PLAVIX 150 MG PO (17:04)
[2023-12-31] MEDS: LIPITOR 40 MG PO (17:05)
[2023-12-31] MEDS: LOVENOX 40 MG SC (17:08)
[2023-12-31 18:10] LABS: Urine Albumin Negative (Neg - Trace); Urine Bilirubin Negative (Negative); Urine Character Clear (Clear); Urine Color Yellow; Urine Glucose Negative (Negative); Urine Ketone Negative (Negative); Urine Leukocyte Negative (Negative); Urine Nitrite Negative (Negative); Urine Occult Blood Negative (Negative); Urine Specific Gravity 1.025 (<1.030); Urine Urobilinogen Negative (Neg - 1+)
[2023-12-31] MEDS: TYLENOL 650 MG PO (19:41)
--- NOTE | 2023-12-31 19:54 | PTCARENOTE ---
Pt. with headache on top of his head, 1-2/10 in severity, stating it comes and goes. Pt. reports feeling fatigued from not sleeping last night. He reports no other changes. NIH = 0. Vital signs stable. GAYATHRI Cardenas notified. No new orders at this time.
PRN tylenol given. Will monitor.
--- NOTE | 2023-12-31 20:45 | TRANSFER ---
Pt transferred from IMU at 20:45. PT AOx3, bed maintained at least at 30 degree angle as ordered. NIH Q Shift, Neurological Q4, until 12/31 at 15:00 then Q Shift. Pt arrived with nurse and his .
--- NOTE | 2023-12-31 20:50 | PTCARENOTE ---
Report given to JUAN FRANCISCO Paulson on . Pt transported to 2115 via wheelchair. All belongings brought to new room
[2024-01-01] VITALS (9 sets, daily range): BP systolic 119–133; BP diastolic 66–76
[2024-01-01 07:51] LABS: Glucose - Point of Care 93 mg/dl (70-99)
[2024-01-01 07:51] LABS: Glucose - Point of Care 103 mg/dl (70-99)
[2024-01-01] MEDS: PLAVIX 75 MG PO (08:03)
[2024-01-01] MEDS: INDERAL LA 80 MG PO (08:03)
--- NOTE | 2024-01-01 10:06 | PTCARENOTE ---
0745: RN into patients room to assess patient. Patient stated that he 'didn't sleep well last night and feels exhausted and weak today'. NIH stroke scale completed and WNL. Neuro exam completed and WNL. Blood sugar and vital signs taken and both are
WNL. Patient has left hand tremors that patient stated is baseline for him. Patient given orange juice and patient stated 'made him feel much better'. Dr. Ravi made aware. Care ongoing at this time.
--- NOTE | 2024-01-01 11:24 | CM ---
Addendum entered by Loraine Myles RN 01/01/24 16:39:
IMM signed and placed on chart.
Original Note:
Reviewed the chart notes and spoke with the patient at the beside. The patient resides with spouse and son in a two story home with two steps to enter. The patient reports no DME/VN/SNF. The patient confirmed his pharmacy of choice is the [facility]. When discharged the patient's family will provide transportation home. CM continues to be available to patient/family and is monitoring medical plan for needs at discharge.
Plan: Discharge to home when medically stable. No needs anticipated.
--- NOTE | 2024-01-01 14:57 | W.PN.UPDATE ---
Update Note
Progress Note Update
Reviewed patient's studies and prior chart.
Patient developed left-sided hemiparesis, resolved with tenecteplase. MRI confirmed acute ischemic stroke.
Will follow as needed.
--- NOTE | 2024-01-01 15:49 | W.DS.TRANS ---
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
-
Discharge Instructions:
Discharge Diagnosis/Procedures Acute CVA
Hypertension
Diet Low Cholesterol
Instructions:
Stand-Alone Forms:
Changes to Home Medications: Yes
Discharge Medications:
DC Medications w/original date entered in [employer]
hydrochlorothiazide 25 mg tablet 25 mg PO DAILY Fluid Retention/Swelling 12/30/23
losartan 50 mg tablet 50 mg PO DAILY Blood Pressure 12/30/23
propranolol 80 mg capsule,extended release 24 hr 80 mg PO DAILY Blood Pressure 12/30/23
atorvastatin 80 mg tablet 80 mg PO QPM #30 tabs 01/01/24
clopidogrel 75 mg tablet 75 mg PO DAILY #30 tabs 01/01/24
Home Medication Changes
Plavix and atorvastatin initiated
Pending Results: No
== END 2024-01-01 16:56 | disposition home or self-care (01) | DRG 62 ==
LOC: 2 SOUTH 15:28
PROVIDERS: Physician Assistant; Physician Assistant Medical; ADMITTING PHYSICIAN Hospitalist; ATTENDING PHYSICIAN Internal Medicine; CONSULT PHYSICIAN Internal Medicine Critical Care Medicine; CONSULT PHYSICIAN Psychiatry & Neurology Neurology; EMERGENCY PHYSICIAN Emergency Medicine; FAMILY PHYSICIAN Family Medicine
PROC: 3E03317 Introduction of Other Thrombolytic into Peripheral Vein, Percutaneous Approach (ICD-10-PCS; 2023-12-30)
DX: I63.9 Cerebral infarction, unspecified (principal); G81.94 Hemiplegia, unspecified affecting left nondominant side; G43.109 Migraine with aura, not intractable, without status migrainosus; I10 Essential (primary) hypertension; E78.5 Hyperlipidemia, unspecified; R29.709 NIHSS score 9; H81.09 Meniere's disease, unspecified ear
CPT/HCPCS: 70450; 70544; 70548; 70551; 71045; 80048; 80053; 80061; 81003; 82607; 82746; 82962; 83036; 83735; 84443; 85025; 85027; 85610; 85730; 92610; 93005; 93306; 96374; 97129; 97162; 97166; 99291; A9585; J3101